=== PATIENT | male | born 1985 | race African-American/Black ===

== ENCOUNTER 2020-01-22 10:17 | Emergency (ER) | payer OTHER ==
[~2020-01-22] VITALS: Ht 182.9 cm; Wt 95.3 kg
[2020-01-22] MEDS ORDERED: OSEL75CA PO (13:47)
[2020-01-22] MEDS ORDERED: ZITHROMAX500 MG PO (13:47)
== END 2020-01-22 13:52 | disposition home or self-care (01) ==
LOC: ER 10:17
DX: B33.8 Other specified viral diseases (principal); J10.1 Influenza due to other identified influenza virus with other respiratory manifestations; B96.0 Mycoplasma pneumoniae [M. pneumoniae] as the cause of diseases classified elsewhere; Z03.818 Encounter for observation for suspected exposure to other biological agents ruled out